=== PATIENT | female | born 1995 | race Hispanic/Latino ===

== ENCOUNTER 2017-02-13 23:09 | Emergency (ER) | payer OTHER ==
[~2017-02-13] VITALS: Ht 160 cm; Wt 77.7 kg
[2017-02-13] MEDS ORDERED: oral birth control PO (23:24)
[2017-02-13] MEDS ORDERED: EXCETAB81 PO (23:28)
[2017-02-14] MEDS ORDERED: diphenhydrAMINE INJ 50MG/ML VIAL (J1200) IV STA (00:13)
[2017-02-14] MEDS ORDERED: KETOROLAC 30 MG/ML VIAL (J1885) IV ONE (00:15)
[2017-02-14] MEDS ORDERED: ZOFR4TAB3 PO (01:18)
[2017-02-14] MEDS ORDERED: NAPR500T PO (01:18)
[2017-02-14] MEDS ORDERED: BENA25CA4 PO (01:18)
[2017-02-14] MEDS ORDERED: MAXA10TA15 PO (01:18)
[2017-02-14 01:40] VITALS: BP 103/60
== END 2017-02-14 01:44 | disposition home or self-care (01) ==
LOC: M ED 23:09
DX: G43.909 Migraine, unspecified, not intractable, without status migrainosus (principal); Z72.0 Tobacco use
CPT/HCPCS: 81025; 96374; 96375; 99283; J1200; J1885